=== PATIENT | female | born 1995 | race Caucasian/White ===

== ENCOUNTER 2016-08-12 07:03 | Emergency (ER) | payer OTHER ==
--- NOTE | 2016-08-12 08:37 | RAD ---
INDICATION: Head injury. COMPARISON: There are no prior studies available for comparison. TECHNIQUE: Contiguous axial sections of the brain were obtained from the skull base to the vertex without contrast. FINDINGS: The ventricles, cisterns and sulci are within normal limits. No significant focal abnormality or mass effect is seen. There is no evidence for hemorrhage. No significant focal osseous abnormality is seen. The visualized portion of the paranasal sinuses and mastoid air cells appear clear. IMPRESSION: NO EVIDENCE FOR ACUTE INTRACRANIAL ABNORMALITY.
--- NOTE | 2016-08-12 08:46 | RAD ---
Indication: Neck injury, neck pain. CT of the cervical spine was obtained in the axial plane. Sagittal and coronal reconstructed images were obtained. The skull base demonstrates no fracture. Mastoid air cells are unremarkable. The C1 ring is intact. The vertebral bodies appear normal in height. No compression fracture is noted. Disc space narrowing at C7-T1 is noted. Otherwise the spinal canal appears to be intact. No fracture is noted. IMPRESSION: Degenerative disc disease at C7-T1. No fracture of the cervical spine is present.
[2016-08-12 09:06] VITALS: BP 138/79
--- NOTE | 2016-08-12 14:47 | UC ---
Randell Schmitz Aidan, scribed for Gypsy Pappas MD on 08/12/16 at 0749 . Head Injury HPI - HPI Summary HPI Summary: 21 y/o female presents to the Urgent Care with a complaint of acute, constant, mild pain at the left forehead and at the back right of the head S/P having a 40 -50lb metal shelf fall onto her head at work at 2300 on 08/10. The shelf fell roughly 2-3 feet before hitting her head. Associated symptoms include intermittent episodes of sharp diffuse PETTY that last roughly 2-3 minutes at a time, right shoulder pain, episodes of palpitations and nausea. Chewing aggravates her head pain. Pt denies any LOC, numbness, weakness, problems hearing, visual symptoms, dizziness, abdominal pain, dysuria, abdominal pain, changes to her bite or jaw movement, or SOB . Hx of mild concussions without LOC , one when the patient was 4 years old and another when she was in high school. 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 Onset/Duration: Sudden Onset, Lasting Days, Still Present Severity Currently: Moderate Severity Initially: Mild Pain Intensity: 2 Pain Scale Used: 0-10 Numeric Character: Sharp Aggravating Factor(s): Other - chewing Alleviating Factor(s): Other - unknown Associated Signs And Symptoms: Positive: Nausea, Other - episodes of palpitations, HAs, right shoulder pain - Allergies/Home Medications Allergies/Adverse Reactions: Allergies Allergy/AdvReac Type Severity Reaction Status Date / Time No Known Allergies Allergy Verified 05/28/15 18:09 Home Medications: Home Medications NK [No Home Medications Reported] 08/12/16 [History Confirmed 08/12/16] PMH/Surg Hx/FS Hx/Imm Hx Previously Healthy: Yes - Surgical History Surgical History: None - Family History Known Family History: Negative: Diabetes - Social History Occupation: Employed Full-time Lives: Alone Alcohol Use: Rare Substance Use Type: None Smoking Status (MU): Light Every Day Tobacco Smoker Type: Cigarettes Review of Systems Constitutional: Negative Skin: Negative Eyes: Negative ENT: Negative, Other - see hpi Respiratory: Negative Cardiovascular: Negative Gastrointestinal: Nausea Genitourinary: Negative Motor: Other - see hpi Neurovascular: Other - headache see hpi Musculoskeletal: Arthralgia - shoulder pain, head pain Neurological: Headache Psychological: Negative All Other Systems Reviewed And Are Negative: Yes Physical Exam Triage Information Reviewed: Yes Appearance: Well-Appearing - sitting up during examination, Well-Nourished Vital Signs: Initial Vital Signs Temp 98.6 F 08/12/16 07:09 Pulse 85 08/12/16 07:09 Resp 18 08/12/16 07:09 BP 131/82 08/12/16 07:09 Pulse Ox 100 08/12/16 07:09 Vital Signs Reviewed: Yes Eye Exam: Normal - perrla eomi sw / cp fundi nondilated grossly benign no nystagmus tracks all vis egan double vision at approx 4 inches, no c/o ENT Exam: Other - tender R lat church, and masseter L regions. C/o pain in jaw (L>R) with chewing and full open. ENT: Positive: Normal ENT inspection, Pharynx normal, TMs normal Dental Exam: Normal - no c/o problems since event (does see a dentist) Neck exam: Other - tender mid cervical region, no point tenderness, but + spasm R>L generalized, more in the lower neck. Neck: Positive: Supple, No Lymphadenopathy Respiratory Exam: Normal Respiratory: Positive: Chest non-tender, Lungs clear, Normal breath sounds, No respiratory distress, No accessory muscle use Cardiovascular Exam: Normal Cardiovascular: Positive: RRR, No Murmur, Pulses Normal, Brisk Capillary Refill Abdominal Exam: Normal Abdomen Description: Positive: Nontender, No Organomegaly, Soft Musculoskeletal Exam: Other Musculoskeletal: Positive: Strength Intact, ROM Intact, No Edema, Other: - Diffuse mid-lateral right neck tenderness, no point bony tenderness, cervical spasm Neurological Exam: Other - no focal findings however, c/o intermittent h/a. sharpened rhomberg a little less time and more difficulty than expected (not able to maintain 20 sec but greater than 10 sec) Neurological: Positive: Alert, Muscle Tone Normal, Other: - left foot 15 s right 11s sharpened Romberg, 5 minute 3 word short term recall 3/3, CN 1 - 12 intact, incl + sens alcohol swab. No diplopia. DTR's 2+ equal P / BR / R Moves all ext's. Distal sens LT present x 4 ext's Denies B/B issues. Gait steady. Psychological Exam: Normal Psychological: Positive: Age Appropriate Behavior Skin Exam: Normal Diagnostics - Radiology BRAIN CT Xray Interpretation: No Acute Changes - IMPRESSION: NO EVIDENCE FOR ACUTE INTRACRANIAL ABNORMALITY. CERVICAL SPINE CT Xray Interpretation: Positive (See Comments) - IMPRESSION: Degenerative disc disease at C7-T1. No fracture of the cervical spine is present. Radiology Interpretation Completed By: Radiologist Head Injury Course/Dx - Course Course Of Treatment: No new problems reported while in [facility]. Reviewed ct cspine and ct brain with pt and father (present during exam). Declines anti-emetic. This is her 3rd lifetime head injury, which unfortunately can increase the severity and duration of symptoms more so than one. I suggest that she f/u with a PCP (will benefit from physician referral service) and will benefit from sports medicine or pm/r concussion f/u. Will refer to Sports Medicine ([place]) re concussion f/u. Avoid driving or operating heavy machinery while symptoms persist. Reviewed instructions / need for f/u w pt and dad (present for examination). Questions answered to the best of my ability. - Differential Dx/Diagnosis Differential Diagnosis/HQI/PQRI: Intracranial Bleed Provider Diagnoses: Head injury. Concussion Discharge - Discharge Plan Condition: Stable Disposition: HOME Patient Education Materials: Concussion (ED), Head Injury (ED) Forms: *Work Release Referrals: [facility] [place] [facility]IAN REFERRAL [Outside] Rowdy New [Medical Doctor] - Additional Instructions: Follow up with a primary care physician as soon as you are able. Referral sports medicine - re concussion f/u. In the next couple weeks if possible, Seek medical attention for worse or new problems. Avoid driving or operating heavy machinery until your symptoms have improved. The documentation as recorded by the Randell baig Aidan accurately reflects the service I personally performed and the decisions made by me, Gypsy Pappas MD.
== END 2016-08-12 09:25 | disposition home or self-care (01) ==
LOC: UCEAST 07:03
DX: S06.0X0A Concussion without loss of consciousness, initial encounter (principal); W20.8XXA Other cause of strike by thrown, projected or falling object, initial encounter; Y93.9 Activity, unspecified; Y92.69 Other specified industrial and construction area as the place of occurrence of the external cause; Y99.0 Civilian activity done for income or pay; S09.8XXA Other specified injuries of head, initial encounter; Z72.0 Tobacco use
CPT/HCPCS: 70450; 72125; 84702; 99211; G0463

== ENCOUNTER 2016-08-19 12:37 | Emergency (ER) | payer OTHER ==
[2016-08-19 12:44] VITALS: BP 115/81
--- NOTE | 2016-08-19 14:00 | UC ---
Head Injury HPI - HPI Summary HPI Summary: MERYL FELL ON HEAD, 08/10/16. SEEN 08/12/16 DIAGNOSED WITH CONCUSSION AND CERVICAL STRAIN (WITH DEGENDERATIVE DISC DISEASE). NO LOC. NECK DISCOMFORT AND HEADACHE CONTINUE. HISTORY OF SEVERAL PREVIOUS CONCUSSIONS. - History Of Current Complaint Chief Complaint: UCHeadInjury Stated Complaint: HEAD AND NECK PAIN Time Seen by Provider: 08/19/16 12:40 Hx Obtained From: Patient Hx Last Menstrual Period: 08/17/16 Onset/Duration: Sudden Onset, Lasting Days, Still Present Severity Currently: Mild Severity Initially: Moderate Character: Dull Aggravating Factor(s): Nothing Alleviating Factor(s): Nothing Associated Signs And Symptoms: Positive: Confusion, Neck Pain, Nausea. Negative : LOC (Time In Secs./Mins/Hrs), LOC Duration Unknown Related History: Similar Episode/Dx as - PREVIOUS CONCUSSION HISTORY - Risk Factors SDH Risk Factor: Negative - Allergies/Home Medications Allergies/Adverse Reactions: Allergies Allergy/AdvReac Type Severity Reaction Status Date / Time No Known Allergies Allergy Verified 05/28/15 18:09 PMH/Surg Hx/FS Hx/Imm Hx Previously Healthy: Yes - Surgical History Surgical History: None - Family History Known Family History: Negative: Diabetes - Social History Occupation: Employed Full-time Lives: With Family Alcohol Use: Rare Substance Use Type: None Smoking Status (MU): Light Every Day Tobacco Smoker Type: Cigarettes Review of Systems Constitutional: Negative Skin: Negative Eyes: Negative ENT: Negative Respiratory: Negative Cardiovascular: Negative Gastrointestinal: Negative Genitourinary: Negative Motor: Negative Neurovascular: Decreased Sensation Musculoskeletal: Arthralgia, Myalgia Neurological: Headache Psychological: Negative All Other Systems Reviewed And Are Negative: Yes Physical Exam Triage Information Reviewed: Yes Appearance: Well-Appearing, No Pain Distress, Well-Nourished Vital Signs: Initial Vital Signs Temp 98.7 F 08/19/16 12:40 Pulse 111 08/19/16 12:40 Resp 18 08/19/16 12:40 BP 115/81 08/19/16 12:40 Pulse Ox 100 08/19/16 12:40 Eye Exam: Normal ENT Exam: Normal ENT: Positive: Normal ENT inspection, Hearing grossly normal, Pharynx normal, TMs normal Dental Exam: Normal Neck: Positive: Supple, No Lymphadenopathy, Tenderness @ - PARASPINAL MUSCLES Respiratory Exam: Normal Respiratory: Positive: Chest non-tender, Lungs clear, Normal breath sounds, No respiratory distress, No accessory muscle use Cardiovascular Exam: Normal Cardiovascular: Positive: RRR, No Murmur, Pulses Normal, Brisk Capillary Refill Abdominal Exam: Normal Abdomen Description: Positive: Nontender, No Organomegaly Musculoskeletal Exam: Normal Musculoskeletal: Positive: Strength Intact, ROM Intact Neurological Exam: Normal Neurological: Positive: Alert, Muscle Tone Normal, Other: - CN 2-12 INTACT Psychological Exam: Normal Head Injury Course/Dx - Differential Dx/Diagnosis Differential Diagnosis/HQI/PQRI: Cervical Sprain, Concussion With LOC, Concussion Without LOC Provider Diagnoses: POST-CONCUSSIVE SYNDROME; CERVICAL STRAIN Discharge - Discharge Plan Condition: Stable Disposition: HOME Patient Education Materials: Cervical Strain (ED), Concussion (ED), Post Concussion Syndrome (ED), Degenerative Disc Disease (ED) Forms: *Work Release Referrals: [facility] [place]Outside] Deuce Valverde MD [Primary Care Provider] - Yari Thompson MD [Medical Doctor] - Additional Instructions: PLEASE TAKE NAPROXEN 500mg PO TWO TIMES PER DAY FOR THE NEXT 5 TO 7 DAYS. PRIMARY CARE: There are four major types of clinical preventive care: immunizations, screening , behavioral counseling (sometimes referred to as lifestyle changes), and chemoprevention. All four apply throughout the life span. It is important to establish and to have access to a Primary Care Physician, not only for follow- up regrding acute and chronic problems, but also for preventative care. PHYSICAL THERAPY REFERRAL: You have been prescribed physical therapy. Treatments may include stretching, exercise, application of heat or cold, and other modalities. After an injury, PT can reduce swelling and pain. In recovery, PT is used to restore mobility and strength. Your specific treatment goals are: Reduction of Swelling (EGS, US, ice as needed) __X___ Pain Reduction (EGS, US, ice as needed) ___X__ TENS Pack Fitting and Instruction Wound Hydrotherapy ___X__ Preservation of Mobility __X___ Pentecostalism of Mobility __X___ Strength Pentecostalism __X___ Work or Sports Hardening This instruction sheet also serves as your PHYSICAL THERAPY REFERRAL! Please take it with you to the therapist, so he/she will be aware of your diagnosis and treatment plan. You may see the physical therapist of your choice for these treatments, but may wish to check with your insurance to be sure the provider you select is covered. It's important to see the doctor to whom you have been referred for follow up.
== END 2016-08-19 14:07 | disposition home or self-care (01) ==
LOC: UCEAST 12:37
DX: F07.81 Postconcussional syndrome (principal); G44.309 Post-traumatic headache, unspecified, not intractable; S16.1XXA Strain of muscle, fascia and tendon at neck level, initial encounter; Z72.0 Tobacco use
CPT/HCPCS: 99211; G0463

== ENCOUNTER 2016-10-07 20:02 | Emergency (ER) | payer SELFPAY ==
[2016-10-07 20:11] VITALS: BP 166/105
[2016-10-07] MEDS ORDERED: NS 0.9% 1000 ML* 1,000 ML IV ONE (20:26)
--- NOTE | 2016-10-07 20:43 | UC ---
Dave Schmitz SooYoung, scribed for Sundeep Gillette MD on 10/07/16 at 2026 . Back Pain HPI - HPI Summary HPI Summary: A 21 y/o F presents to ED with c/o severe low back pain onset two days ago, and worsening greatly in past 30 minutes. Intermittent pain also occurring at her L flank. States she's woken up from sleep by the pain. Associated sx: frequency. Denies: dysuria. Took Advil prev to no relief. No Ibuprofen today. States she's never had pain like this before, pt is tearful at bedside. - History of Current Complaint Chief Complaint: UCBackPain Stated Complaint: RIB PAIN Time Seen by Provider: 10/07/16 20:21 Hx Obtained From: Patient Hx Last Menstrual Period: END AUGUST Onset/Duration: Lasting Hours, Lasting Days, Still Present Timing: Constant Severity Currently: Severe Pain Intensity: 10 Pain Scale Used: 0-10 Numeric Back Pain: Is Discrete @ - lower back Aggravating: Movement, Lifting, Bending, Walking, Cough Associated Signs And Symptoms: Positive: Other - pos: frequency. Negative: Bladder Incontinence - Allergies/Home Medications Allergies/Adverse Reactions: Allergies Allergy/AdvReac Type Severity Reaction Status Date / Time No Known Allergies Allergy Verified 10/07/16 20:11 PMH/Surg Hx/FS Hx/Imm Hx Previously Healthy: Yes - Denies. Neg COPD, CHF - Surgical History Surgical History: None - Family History Known Family History: Negative: Diabetes - Social History Occupation: Employed Full-time Lives: With Family Alcohol Use: Occasionally Substance Use Type: None Smoking Status (MU): Former Smoker Type: Cigarettes Review of Systems Constitutional: Fever Skin: Negative Eyes: Negative ENT: Negative Respiratory: Negative Cardiovascular: Negative Gastrointestinal: Other - pos: flank pain Genitourinary: Frequency, Other - neg: dysuria Motor: Negative Neurovascular: Negative Musculoskeletal: Other: - pos: back pain Neurological: Negative Psychological: Negative All Other Systems Reviewed And Are Negative: Yes Physical Exam Triage Information Reviewed: Yes Appearance: Well-Appearing, Pain Distress - moderate to severe Vital Signs: Initial Vital Signs Temp 100.5 F 10/07/16 20:06 Pulse 78 10/07/16 20:06 Resp 18 10/07/16 20:06 BP 166/105 10/07/16 20:06 Pulse Ox 100 10/07/16 20:06 Vital Signs Reviewed: Yes Eyes: Positive: Other: - EOMI/ISA ENT: Positive: Hearing grossly normal Neck: Positive: Supple, Nontender Respiratory: Positive: Chest non-tender, Lungs clear, Normal breath sounds Cardiovascular: Positive: Tachycardia Abdomen Description: Positive: Soft, CVA Tenderness (L) Musculoskeletal: Positive: Strength Intact, ROM Intact Neurological Exam: Normal - sensory/motor intact Neurological: Positive: Alert - A&Ox3 Psychological: Positive: Age Appropriate Behavior Skin Exam: Normal - warm, dry, reflects adequate perfusion Back Pain Course/Dx - Course Course Of Treatment: Patient is Urgent/Emergent. BP elevated due to current condition w/o HTN in PMH. Pt medication reviewed this visit. WITH THE SEVERE FLANK PAIN AND FEVER, I RECOMMENDED PATIENT SEEK EVALUATION IN THE EMERGENCY DEPARTMENT. THE FATHER AND PATIENT WISHED TO GO BY POV. DISCUSSED WITH ED PROVIDER OK STEPHEN. - Differential Dx/Diagnosis Provider Diagnoses: FLANK PAIN. UTI. Elevated blood pressure without diagnosis of hypertension Discharge - Discharge Plan Condition: Stable Disposition: HOME Patient Education Materials: Fever in Adults (ED), Flank Pain (ED) Referrals: Deuce Valverde MD [Primary Care Provider] - (Follow up for additional blood pressure readings in 1 day to 4 weeks.) Additional Instructions: Your blood pressure reading today was 166/105, which is HYPERTENSIVE. Follow-up with your primary care provider within 4 weeks for blood pressure readings and further evaluation. Lab Results - Lab Results Lab Results: 10/07/16 10/07/16 20:30 20:33 POC Urine Color Yellow POC Urine Clarity Clear POC Urine pH 5.5 POC Ur Specif [place] 1.015 POC Urine Protein Trace H POC Ur Glucose (UA) Negative POC Urine Ketones Negative POC Urine Blood Negative POC Urine Nitrite Negative POC Urine Bilirubin Negative POC Urine Urobilinogen 0.2 POC U Leukocyte Esteras Trace H POC Ur Test Negative The documentation as recorded by the Dave baig SooYoung accurately reflects the service I personally performed and the decisions made by me, Sundeep Gillette MD.
== END 2016-10-07 20:42 | disposition home or self-care (01) ==
LOC: UCEAST 20:02
DX: N39.0 Urinary tract infection, site not specified (principal); M54.5 Low back pain; R03.0 Elevated blood-pressure reading, without diagnosis of hypertension; Z32.02 Encounter for pregnancy test, result negative; Z87.891 Personal history of nicotine dependence
CPT/HCPCS: 81003; 84702; 87086; 99211; G0463

== ENCOUNTER 2016-10-07 20:54 | Emergency (ER) | payer SELFPAY ==
[2016-10-07] MEDS ORDERED: Ondansetron INJ* 2 MG/ML VIAL IV ONE (22:09)
[2016-10-07] MEDS ORDERED: NS 0.9% 1000 ML* 1,000 ML IV ONE (22:09)
[2016-10-07] MEDS ORDERED: Ketorolac INJ* 30 MG/ML 1 ML VIAL IV ONE (22:09)
--- NOTE | 2016-10-07 22:30 | ED ---
Mary Schmitz Alfonso, scribed for Homer Childers MD on 10/07/16 at 2204 . Abdominal Pain/Female - HPI Summary HPI Summary: This patient is a 21 year old F presenting to [facility] with a chief complaint of left flank pain since 0700 yesterday morning. The pain is worse since a few hours ago. She has never had this pain before. The CC is described as aching and sharp. The patient rates the pain 10/10 in severity. Symptoms aggravated and alleviated by nothing. Patient reports increased urinary frequency, and nausea. - History of Current Complaint Chief Complaint: EDFlankPain Stated Complaint: LT FLANK PAIN/SENT FROM [facility] Time Seen by Provider: 10/07/16 22:02 Hx Obtained From: Patient Hx Last Menstrual Period: END AUGUST Onset/Duration: Sudden Onset, Lasting Days - since 0700 yesterday morning, Worse Since - a few hours ago. Timing: Constant Severity Initially: Severe Severity Currently: Severe Pain Intensity: 10 Pain Scale Used: 0-10 Numeric Location: Flank - Left Character: Sharp, Other: - Aching Aggravating Factor(s): Nothing Alleviating Factor(s): Nothing Associated Signs and Symptoms: Positive: Urinary Symptoms - Frequency, Nausea Allergies/Adverse Reactions: Allergies Allergy/AdvReac Type Severity Reaction Status Date / Time No Known Allergies Allergy Verified 10/07/16 20:11 PMH/Surg Hx/FS Hx/Imm Hx Sensory History: Denies: Hx Deafness Opthamlomology History: Denies: Hx Legally Blind - Immunization History Date of Tetanus Vaccine: unknown Infectious Disease History: No Infectious Disease History: Denies: Hx Clostridium Difficile, Hx Hepatitis, Hx Human Immunodeficiency Virus (HIV), Hx of Known/Suspected MRSA, Hx Shingles, Hx Tuberculosis, Hx Known/ Suspected VRE, Hx Known/Suspected VRSA, History Other Infectious Disease, Traveled Outside the [place] in Last 30 Days - Family History Known Family History: Negative: Diabetes - Social History Alcohol Use: Occasionally Substance Use Type: Reports: None Smoking Status (MU): Former Smoker Type: Cigarettes Review of Systems Positive: Abdominal Pain - Left flank, Nausea Positive: frequency - increased All Other Systems Reviewed And Are Negative: Yes Physical Exam Triage Information Reviewed: Yes Vital Signs On Initial Exam: Initial Vitals Temp Pulse Resp BP Pulse Ox 97.5 F 99 20 122/81 100 10/07/16 20:57 10/07/16 20:57 10/07/16 20:57 10/07/16 20:57 10/07/16 20:57 Vital Signs Reviewed: Yes Appearance: Positive: No Pain Distress, Thin Skin: Positive: Warm Head/Face: Positive: Normal Head/Face Inspection Eyes: Positive: ISA ENT: Positive: Hearing grossly normal Neck: Positive: Supple, Nontender Respiratory/Lung Sounds: Positive: Breath Sounds Present Cardiovascular: Positive: RRR Abdomen Description: Positive: Nontender, Soft. Negative: CVA Tenderness (R), CVA Tenderness (L) Bowel Sounds: Positive: Present Musculoskeletal: Positive: Strength/ROM Intact Neurological: Positive: Alert, Oriented to Person Place, Time Psychiatric: Positive: Affect/Mood Appropriate - [place] Coma Scale Coma Scale Total: 15 Diagnostics - Vital Signs Vital Signs Temp Pulse Resp BP Pulse Ox 10/07/16 20:57 97.5 F 99 20 122/81 100 - Laboratory Result Diagrams: 10/07/16 23:09 10/07/16 23:09 Lab Statement: Any lab studies that have been ordered have been reviewed, and results considered in the medical decision making process. - CT A/P CT Interpretation Completed By: Radiologist - No nephrolithiasis, ureterolithiasis, or obstructive uropathy. No bladder calculi. Unremarkable pancreas and gallbladder. No obstruction, colitis, or free air. Normal appendix. Negligible physiologic free fluid cul-de-sac. Positioning more likely than dextroscoliosis. Re-Evaluation - Re-Evaluation First Eval Comment: results d/w pt, labs and ct neg, pt reassured, will tx for musculoskeltal pain to f/u with pcp Abdominal Pain Fem Course/Dx - Course Course Of Treatment: This patient is a 21 year old F presenting to [facility] with a chief complaint of left flank pain since 0700 yesterday morning. The pain is worse since a few hours ago. She has never had this pain before. The CC is described as aching and sharp. The patient rates the pain 10/10 in severity. Symptoms aggravated and alleviated by nothing. Patient reports increased urinary frequency, and nausea. CT A/P reveals No nephrolithiasis, ureterolithiasis, or obstructive uropathy. No bladder calculi. Unremarkable pancreas and gallbladder. No obstruction, colitis, or free air. Normal appendix. Negligible physiologic free fluid cul-de-sac. Positioning more likely than dextroscoliosis. Patient will be discharged with prescription for Flexeril and Naproxen and follow up from PCP. The patient is agreeable with this plan. - Diagnoses Provider Diagnoses: Flank pain Discharge - Discharge Plan Condition: Stable Disposition: HOME Prescriptions: Cyclobenzaprine HCl [Flexeril 5 mg (NF)] 5 mg PO TID #15 tab Naproxen TAB* [Naprosyn 250 mg TAB*] 500 mg PO BID #20 tab Patient Education Materials: Flank Pain (ED) Referrals: Deuce Valverde MD [Primary Care Provider] - 3 Days The documentation as recorded by the Mary baig Alfonso accurately reflects the service I personally performed and the decisions made by , Homer Childers MD.
[2016-10-07 22:44] LABS: Urine Bilirubin Negative (Negative); Urine Glucose Negative (Negative); Urine Nitrite Negative (Negative)
[2016-10-07 23:22] LABS: Hematocrit 37 % (35-47); Hemoglobin 12.3 g/dl (12.0-16.0); Mean Corpuscular HGB Conc 33 g/dl (31-36); Mean Corpuscular Hemoglobin 29 pg (27-31); Mean Corpuscular Volume 87 fL (80-97); Mean Platelet Volume 9 um3 (7.4-10.4); Red Cell Distribution Width 14 % (10.5-15); White Blood Count 6.4 10^3/ul (3.5-10.8)
[2016-10-07 23:37] LABS: BUN/Creatinine Ratio 14.5 (8-20); C Reactive Protein 24.31 mg/L (< 5.00); Calcium 9.7 mg/dL (8.6-10.3); EGFR African American 138.1 (>60); EGFR Non-African American 107.4 (>60); Globulin 2.5 g/dL (2-4); Magnesium 2.1 mg/dL (1.9-2.7); Potassium 3.6 mmol/L (3.5-5.0); Total Bilirubin 0.3 mg/dL (0.2-1.0); Total Protein 7.5 g/dL (6.4-8.9)
[2016-10-07 23:42] LABS: Manual Entry Verification ROB0080; UR Preg Internal Control QC Line Present
[2016-10-08 00:11] VITALS: BP 142/89
--- NOTE | 2016-10-08 07:56 | RAD ---
INDICATION: Left flank pain COMPARISON: None TECHNIQUE: Noncontrast axial source images were acquired from the level hemidiaphragms to the symphysis pubis as part of CT imaging for renal stone. Lung bases: The lung bases are clear. Liver: The liver is normal in size. Noncontrast imaging shows no evidence of a hepatic mass or ductal dilatation. Gallbladder: There are no calcified gallstones. There is no evidence of wall thickening or pericholecystic fluid.. Spleen: The spleen is normal in size. The noncontrast CT appearance is normal. Pancreas: Noncontrast imaging shows no pancreatic mass or ductal dilitation. Adrenal glands: No masses are identified. Kidneys/Bladder: There is no evidence of nephrolithiasis or CT evidence of hydronephrosis. Noncontrast imaging shows no evidence of a renal mass. The bladder is unremarkable.. Adenopathy: There is no evidence of intraperitoneal or retroperitoneal adenopathy. Evaluation is limited without oral contrast. Fluid collections: There are no free or localized fluid collections. Vessels: The aorta and iliac vessels are normal in caliber. There are no significant atherosclerotic changes. The IVC appears normal . There are phleboliths in the minor pelvis. Pelvic organs: The uterus and adnexa appear normal GI tract: Evaluation of the bowel is limited without oral contrast. The stomach, small bowel, and lower GI tract appear grossly normal. There are no obstructive findings. The appendix is visualized and appears normal. Soft tissues: No soft tissue abnormalities of the extraperitoneal abdomen or pelvis are identified. Osseous structures: There are no acute osseous findings. IMPRESSION: NO CONVINCING CT EVIDENCE OF UROLITHIASIS. NORMAL APPENDIX.
== END 2016-10-08 00:20 | disposition home or self-care (01) ==
LOC: ED 20:54
DX: R10.84 Generalized abdominal pain (principal); R11.0 Nausea; Z87.891 Personal history of nicotine dependence
CPT/HCPCS: 36415; 74176; 80053; 81003; 81025; 83605; 83690; 83735; 85025; 86140; 96374; 96375; 99283; J1885; J2405

== ENCOUNTER 2017-03-14 12:24 | Emergency (ER) | payer SELFPAY ==
[2017-03-14 14:53] VITALS: BP 141/83
[2017-03-14] MEDS ORDERED: Ibuprofen TAB* 400 MG PO ONE (14:58)
--- NOTE | 2017-03-14 15:05 | UC ---
Back Pain HPI - History of Current Complaint Chief Complaint: UCLowerExtremity Stated Complaint: FELL TAILBONE INJURY Time Seen by Provider: 03/14/17 14:52 Hx Obtained From: Patient Hx Last Menstrual Period: 02/14/17 ?: No Onset/Duration: Sudden Onset - slipped on stair and hit tail bone on edge of stair 5h ago Severity Initially: Severe Severity Currently: Severe Back Pain: Is Discrete @ - tail bone area Character: Sharp, Throbbing Aggravating Factor(s): Movement, Other - sitting Alleviating Factor(s): Nothing Associated Signs And Symptoms: Positive: Negative - Allergies/Home Medications Allergies/Adverse Reactions: Allergies Allergy/AdvReac Type Severity Reaction Status Date / Time No Known Allergies Allergy Verified 10/07/16 20:11 PMH/Surg Hx/FS Hx/Imm Hx Previously Healthy: Yes - Surgical History Surgical History: None - Family History Known Family History: Negative: Diabetes - Social History Occupation: Student Lives: With Family Alcohol Use: Occasionally Substance Use Type: None Smoking Status (MU): Light Every Day Tobacco Smoker Type: Cigarettes Cessation Counseling: Patient Advised to Stop Review of Systems Constitutional: Negative Respiratory: Negative Cardiovascular: Negative Neurological: Negative Psychological: Negative All Other Systems Reviewed And Are Negative: Yes Physical Exam Triage Information Reviewed: Yes Appearance: Well-Nourished, Pain Distress - standing bent at waist for comfort. tearful d/t pain (has taken no meds) Vital Signs: Initial Vital Signs Temp 99.2 F 03/14/17 12:39 Pulse 99 03/14/17 12:39 Resp 18 03/14/17 12:39 BP 145/86 03/14/17 12:39 Pulse Ox 100 03/14/17 12:39 Vital Signs Reviewed: Yes Respiratory Exam: Normal Cardiovascular Exam: Normal Musculoskeletal: Positive: Other: - no palp pain lower back, palp pain coccyx area, faint ecchymosis Neurological Exam: Normal Psychological Exam: Normal Skin Exam: Normal Back Pain Course/Dx - Differential Dx/Diagnosis Differential Diagnosis/HQI/PQRI: Fracture, Other - contusion Provider Diagnoses: contusion coccyx Discharge - Discharge Plan Condition: Stable Disposition: HOME Prescriptions: Acetaminop/Codeine 30 MG TAB* [Tylenol/Codeine 30 MG TAB*] 1 tab PO Q6H PRN #12 tab MDD 4 PRN Reason: Pain Patient Education Materials: Coccyx Injury (ED) Forms: *Work Release Referrals: No Primary Care Phys,NOPCP [Primary Care Provider] - Additional Instructions: rest, apply ice to area of pain use ibuprofen 600-800mg every 6 hours as needed with food may use tylenol #3 as directed for severe pain
--- NOTE | 2017-03-14 15:49 | RAD ---
HISTORY: Left-sided SI pain after fall COMPARISONS: None VIEWS: 3, frontal, outlet, and lateral views of the sacrum and coccyx FINDINGS: BONE DENSITY: Normal. BONES: There is no displaced fracture. The sacral arches are intact. JOINTS: There is no arthropathy. ALIGNMENT: There is no dislocation. SOFT TISSUES: Unremarkable. OTHER FINDINGS: None. IMPRESSION: NO ACUTE OSSEOUS INJURY OF THE SACRUM AND COCCYX. PLAIN FILMS ARE RELATIVELY INSENSITIVE TO NONDISPLACED FRACTURES OF THE SACRUM AND COCCYX. IF THERE IS PERSISTENT CLINICAL CONCERN FOR SACROCOCCYGEAL OSSEOUS PATHOLOGY, BONE SCANNING MAY BE MORE SENSITIVE
== END 2017-03-14 16:31 | disposition home or self-care (01) ==
LOC: UCEAST 12:24
DX: S30.0XXA Contusion of lower back and pelvis, initial encounter (principal); W10.9XXA Fall (on) (from) unspecified stairs and steps, initial encounter; Y93.9 Activity, unspecified; Y92.9 Unspecified place or not applicable; F17.210 Nicotine dependence, cigarettes, uncomplicated
CPT/HCPCS: 72220; 99212; A9270-GY; G0463

== ENCOUNTER → 2017-05-10 16:29 | Emergency (ER) | payer SELFPAY ==
[~2017-05-10 16:29] MED LIST: Metoclopramide TAB* 10 MG PO ONE
--- NOTE | 2017-05-10 19:05 | ED ---
- HPI Summary HPI Summary: Pt here w/ LMP end of January/beginning of February and positive home urine tests. She has not been seen by OBGYN yet as she's trying to get health insurance and a PCP for referral. Other than "morning sickness" the past 3-4 days and mild intermittent lower pelvic discomfort, she has no complaints. She reports she feels well overall - has had some fatigue but rests well and has been eating well up until morning sickness. Denies spotting, bleeding or vaginal d/c and no fever, chills, CP, SOB, back pain or change in urinary habits. This is her first . She is here to get morning sickness controlled and "see if I'm okay". She has stopped drinking caffeine and ETOH and does not smoke or use drugs. She has not started a vitamin as she wasn't sure what to take. - History of Current Complaint Chief Complaint: EDOBProblems Stated Complaint: ABD PAIN, N/V Time Seen by Provider: 05/10/17 17:39 Hx Obtained From: Patient, Family/[employer] - male partner Pain Intensity: 0 - Assessment Hx Now: No - Allergies/Home Medications Allergies/Adverse Reactions: Allergies Allergy/AdvReac Type Severity Reaction Status Date / Time No Known Allergies Allergy Verified 10/07/16 20:11 PMH/Surg Hx/FS Hx/Imm Hx Previously Healthy: Yes Endocrine/Hematology History: Denies: Hx Anticoagulant Therapy, Hx Blood Disorders, Hx Thyroid Disease, Hx Anemia, Hx Unexplained Bleeding, Hx Coagulopothy History: Reports: Other Problems/Disorders - h/o small ovarian cyst - no complications Sensory History: Denies: Hx Legally Blind, Hx Deafness Opthamlomology History: Denies: Hx Legally Blind - Immunization History Date of Tetanus Vaccine: unknown Infectious Disease History: No Infectious Disease History: Denies: Hx Clostridium Difficile, Hx Hepatitis, Hx Human Immunodeficiency Virus (HIV), Hx of Known/Suspected MRSA, Hx Shingles, Hx Tuberculosis, Hx Known/ Suspected VRE, Hx Known/Suspected VRSA, History Other Infectious Disease, Traveled Outside the [place] in Last 30 Days - Family History Known Family History: Positive: Other - mom miscarried 3 times (reasons unknown ) - has 3 viable pregnancies Negative: Diabetes - Social History Occupation: Employed Full-time Lives: With Family Alcohol Use: Occasionally Hx Substance Use: No Substance Use Type: Reports: None Hx Tobacco Use: Yes - not currently Smoking Status (MU): Light Every Day Tobacco Smoker Type: Cigarettes Review of Systems Positive: Fatigue - as in HPI. Negative: Fever, Chills Cardiovascular: Negative Respiratory: Negative Positive: Vomiting, Nausea. Negative: Diarrhea - still moving bowels Genitourinary: Negative Positive: other - still urinating well. Negative: burning, dysuria, discharge, frequency, flank pain, hematuria, incontinence, pain, urgency Musculoskeletal: Negative Skin: Negative Neurological: Negative Psychological: Normal All Other Systems Reviewed And Are Negative: Yes Physical Exam - Physical Exam Triage Information Reviewed: Yes Vital Signs Reviewed: Yes Appearance: Positive: Well-Appearing, No Pain Distress, Thin Skin: Positive: Warm, Skin Color Reflects Adequate Perfusion, Dry Head/Face: Positive: Normal Head/Face Inspection Eyes: Positive: Normal, EOMI, Conjunctiva Clear - anicteric sclera ENT: Positive: Normal ENT inspection, Hearing grossly normal, Pharynx normal - mucosa moist Neck: Positive: Supple Respiratory/Lung Sounds: Positive: Clear to Auscultation, Breath Sounds Present Cardiovascular: Positive: Normal, RRR, S1, S2. Negative: Murmur, Rub Abdomen Description: Positive: Nontender, No Organomegaly, Soft Bowel Sounds: Positive: Present Musculoskeletal: Positive: Normal, Strength/ROM Intact Neurological: Positive: Normal, Sensory/Motor Intact, Alert, Oriented to Person Place, Time, CN Intact II-III Psychiatric: Positive: Normal Diagnostics - Vital Signs Vital Signs Temp Pulse Resp BP Pulse Ox 05/10/17 16:40 98.7 F 85 14 130/73 79 - Laboratory Lab Results: Lab Results 05/10/17 Range/Units 17:30 Beta HCG, Quant 64998.00 mIU/mL Lab Statement: Any lab studies that have been ordered have been reviewed, and results considered in the medical decision making process. Course/Dx - Course Course Of Treatment: Pt's serum hcg confirms at about the same time frame of her LMP (about 11 weeks ). Estimated due date using calculator is Nov 25, 2017. She has resolution of nausea since reglan and drinking w/o difficulty now. Will send to pharmacy for use PRN. Also discussed healthy tips (ie, starting prenantal vitamin which she can get OTC, avoiding meds except acetaminophen, etc). Congratulated on efforts to make changes for healthy . Reviewed danger s/sx of when to return to ED. Otherwise, advised to consult w/ OBGYN - referral given today. Pt and partner agree w/ plan. NOTE: U/S is not required as she has no danger s/sx of pathology and HR may not be attained this early in . - Diagnoses Provider Diagnoses: , Morning sickness - Provider Notifications Discussed Care Of Patient With: Reji Squires Discharge - Discharge Plan Condition: Stable Disposition: HOME Prescriptions: Metoclopramide TAB* [Reglan TAB*] 10 mg PO Q8H PRN #15 tab PRN Reason: Nausea Patient Education Materials: (ED), Hyperemesis Gravidarum (ED) Referrals: No Primary Care Phys,NOPCP [Primary Care Provider] - [facility] [place] [facility] [Outside] Phil Carter MD [Medical Doctor] - Additional Instructions: Based on your LMP and hcg level, you appear to be about 11 weeks along and based on calculations, your estimated due date is November 25, 2017. This may be better estimated once you have had an ultrasound. You may establish with an OBGYN for further workup - call tomorrow to schedule an initial appointment for next week to get your first ultrasound - this should show heart rate if viable . In the meantime, start a vitamin (you may get these at pharmacies, groceries stores or health food stores or on-line - ask pharmacist if you feel you need further guidance). Continue with your healthy lifestyle of no smoking, no drinking alcohol or caffeine and getting plenty of sleep. You may take acetaminophen only for pain, fever - inquire with OBGYN about other medications that are safe during as needed. You have been provided with an anti-nausea medication today, reglan, which is safe in but only take as needed. Stay hydrated. *If you develop abdominal pain, contractions, vaginal spotting/bleeding or abnormal discharge, back pain, fever, chills or intractable vomiting or diarrhea leading to dehydration, return to the ED.
[2017-05-10 19:09] VITALS: BP 117/74
== END | disposition home or self-care (01) ==
LOC: ED 16:29
DX: O21.0 Mild hyperemesis gravidarum (principal); O99.331 Smoking (tobacco) complicating pregnancy, first trimester; F17.210 Nicotine dependence, cigarettes, uncomplicated; Z3A.11 11 weeks gestation of pregnancy
CPT/HCPCS: 36415; 84702; 99282; A9270-GY

== ENCOUNTER 2017-05-30 16:08 | Emergency (ER) | payer SELFPAY ==
[2017-05-30 20:03] VITALS: BP 120/75
--- NOTE | 2017-06-11 11:17 | UC ---
Respiratory Complaint HPI - HPI Summary HPI Summary: Patient complains of sore throat for several days and some nasal congestion. She also c/o dry cough which she found was streaked with blood past several times and this prompted her to visit UC. Denies fever although she does not know if she had low grade, denies malaise, or facial pain. She denies known contact with tuberculosis or others with chronic cough, night sweats, weight loss. - History of Current Complaint Chief Complaint: UCRespiratory Stated Complaint: COUGHING UP BLOOD,ST,3MOS PREG Time Seen by Provider: 05/30/17 18:34 Hx Obtained From: Patient Hx Last Menstrual Period: 02/14/17 ?: Yes Onset/Duration: Sudden Onset, Lasting Days Timing: Intermittent Episodes Severity Initially: Mild Severity Currently: Moderate Pain Intensity: 4 Character: Cough: Nonproductive - with streaks of blood Associated Signs And Symptoms: Positive: Nasal Congestion, Sinus Discomfort - Risk Factors Tuberculosis Risk Factors: Negative - Allergies/Home Medications Allergies/Adverse Reactions: Allergies Allergy/AdvReac Type Severity Reaction Status Date / Time No Known Allergies Allergy Verified 05/30/17 17:15 Home Medications: Home Medications Pnv No.95/Ferrous Fum/Folic AC [ Vitamin & Minera 28-0.8 mg] 1 tab PO [History] PMH/Surg Hx/FS Hx/Imm Hx Previously Healthy: Yes Other History Of: Negative For: Anticoagulant Therapy - Surgical History Surgical History: None - Family History Known Family History: Positive: Other - mom miscarried 3 times (reasons unknown ) - has 3 viable pregnancies Negative: Diabetes - Social History Alcohol Use: None Substance Use Type: None Smoking Status (MU): Former Smoker Type: Cigarettes Review of Systems Constitutional: Negative ENT: Sore Throat, Nasal Discharge Respiratory: Cough All Other Systems Reviewed And Are Negative: Yes Physical Exam Triage Information Reviewed: Yes Appearance: Well-Appearing, No Pain Distress, Well-Nourished Vital Signs: Initial Vital Signs Temp 99.1 F 05/30/17 17:11 Pulse 82 05/30/17 17:11 Resp 18 05/30/17 17:11 BP 120/76 05/30/17 17:11 Pulse Ox 100 05/30/17 17:11 Vital Signs Reviewed: Yes Eyes: Positive: Conjunctiva Clear ENT: Positive: Hearing grossly normal, Pharyngeal erythema, TMs normal, Uvula midline Respiratory: Positive: Chest non-tender, Lungs clear, Normal breath sounds, No respiratory distress Cardiovascular: Positive: RRR, No Murmur, Pulses Normal, Brisk Capillary Refill UC Diagnostic Evaluation - Laboratory O2 Sat by Pulse Oximetry: 100 Respiratory Course/Dx - Course Course Of Treatment: POC rapid strep negative. Continue oral hydration, tylenol as needed, Follow up with PCP if not symptoms are not self limited or if they worsen. F.u with OBGYN with routine screenings, PPD, and dental to rule out gum disease. Patient with complaints of sore throat and Hx of GERD, d/ w patient antireflux measures and use of calcium carbonate (TUMS) when needed. - Differential Dx/Diagnosis Provider Diagnoses: Viral URI. GERD Discharge - Sign-Out/Discharge Documenting (check all that apply): Discharge - Discharge Plan Condition: Stable Disposition: HOME Patient Education Materials: Gastroesophageal Reflux Disease (ED) Referrals: [facility] [Outside] No Primary Care Phys,NOPCP [Primary Care Provider] - - Billing Disposition and Condition Condition: STABLE Disposition: HOME
== END 2017-05-30 19:58 | disposition home or self-care (01) ==
LOC: UCEAST 16:08
DX: J06.9 Acute upper respiratory infection, unspecified (principal); K21.9 Gastro-esophageal reflux disease without esophagitis; Z87.891 Personal history of nicotine dependence
CPT/HCPCS: 87070; 87651; 99211; G0463

== ENCOUNTER 2017-09-06 22:26 | Emergency (ER) | payer OTHER ==
[2017-09-06 22:29] VITALS: BP 155/98
--- NOTE | 2017-09-06 23:02 | ED ---
- HPI Summary HPI Summary: Patient with history of 24 weeks complains of mechanical fall when she tripped over a dog with subsequent left side abdominal pain rated currently 3/ 10. Denies any other pain or injury including head injury. A1. has been evaluated by [facility] with ultrasound confirming IUP. Last visit [facility] 1 month ago. Patient denies N/V, vaginal symptoms, urinary symptoms, bowel movement change. History is none. Abdominal/pelvic surgical history is none. - History of Current Complaint Chief Complaint: EDOBProblems Stated Complaint: 20 WEEKS PREG/ABD PAIN Time Seen by Provider: 09/06/17 22:32 Hx Obtained From: Patient Chief Complaint: Pain Onset/Duration: Started Minutes Ago Timing: Constant Severity: Mild Current Severity: Mild Pain Intensity: 3 Location of Pain: Left Side Character: Cramping Associated Signs and Symptoms: Positive: Negative - Assessment Hx Now: Yes - Allergies/Home Medications Allergies/Adverse Reactions: Allergies Allergy/AdvReac Type Severity Reaction Status Date / Time No Known Allergies Allergy Verified 09/06/17 22:30 PMH/Surg Hx/FS Hx/Imm Hx Endocrine/Hematology History: Denies: Hx Anticoagulant Therapy, Hx Blood Disorders, Hx Thyroid Disease, Hx Anemia, Hx Unexplained Bleeding Respiratory History: Denies: Hx Lung Cancer History: Reports: Other Problems/Disorders - h/o small ovarian cyst - no complications Sensory History: Denies: Hx Legally Blind, Hx Deafness Opthamlomology History: Denies: Hx Legally Blind Neurological History: Denies: Hx CVA - Immunization History Date of Tetanus Vaccine: unknown Infectious Disease History: No Infectious Disease History: Denies: Hx Clostridium Difficile, Hx Hepatitis, Hx Human Immunodeficiency Virus (HIV), Hx of Known/Suspected MRSA, Hx Shingles, Hx Tuberculosis, Hx Known/ Suspected VRE, Hx Known/Suspected VRSA, History Other Infectious Disease, Traveled Outside the [place] in Last 30 Days - Family History Known Family History: Positive: Other - mom miscarried 3 times (reasons unknown ) - has 3 viable pregnancies Negative: Diabetes - Social History Alcohol Use: None Hx Substance Use: No Substance Use Type: Reports: None Hx Tobacco Use: Yes - not currently Smoking Status (MU): Former Smoker Type: Cigarettes Review of Systems Constitutional: Negative Eyes: Negative ENT: Negative Cardiovascular: Negative Respiratory: Negative Positive: Abdominal Pain Genitourinary: Negative Musculoskeletal: Negative Skin: Negative Neurological: Negative Psychological: Normal All Other Systems Reviewed And Are Negative: Yes Physical Exam - Summary Physical Exam Summary: Mild tenderness to palpation left lower quadrant. Abdomen otherwise nontender to palpation. - Physical Exam Triage Information Reviewed: Yes Vital Signs Reviewed: Yes Appearance: Positive: Well-Appearing Skin: Positive: Warm Head/Face: Positive: Normal Head/Face Inspection Eyes: Positive: Normal Neck: Positive: Supple Respiratory/Lung Sounds: Positive: Clear to Auscultation Cardiovascular: Positive: Normal Abdomen Description: Positive: Other: Musculoskeletal: Positive: Normal Neurological: Positive: Normal Psychiatric: Positive: Normal AVPU Assessment: Alert - [place] Coma Scale Eye: 4 - Spontaneous Motor: 6 - Obeys Commands Verbal: 5 - Oriented Coma Scale Total: 15 Diagnostics - Vital Signs Vital Signs Temp Pulse Resp BP Pulse Ox 09/06/17 22:27 98.4 F 102 19 155/98 96 - Laboratory Lab Statement: Any lab studies that have been ordered have been reviewed, and results considered in the medical decision making process. Course/Dx - Course Course Of Treatment: Patient with history of 24 weeks complains of mechanical fall when she tripped over a dog with subsequent left side abdominal pain rated currently 3/10. Denies any other pain or injury including head injury. A1. has been evaluated by [facility] with ultrasound confirming IUP. Last visit [facility] 1 month ago. Patient denies N/V, vaginal symptoms, urinary symptoms, bowel movement change. History is none. Abdominal/ pelvic surgical history is none. PE: Mild tenderness to palpation left lower quadrant. Abdomen otherwise nontender to palpation.No evidence of ecchymosis, swelling, deformity, erythema, extra warmth to abdomen. heart tones 144. Vital signs within normal limits and stable. monitoring by maternity was unable to get complete 10 minutes trip due to activity, however several 3-4 minutes trips indicated heart rate was in normal limits and good activity. Follow up with [facility]AG [facility]. - Diagnoses Provider Diagnoses: Fall, Discharge - Sign-Out/Discharge Documenting (check all that apply): Patient Departure - Discharge Plan Condition: Stable Disposition: HOME Patient Education Materials: (ED) Referrals: No Primary Care Phys,NOPCP [Primary Care Provider] - Additional Instructions: Follow-up with your [facility]AG FIN[facility]ER. Return to the ED for any new or worsening symptoms - Billing Disposition and Condition Condition: STABLE Disposition: Home
== END 2017-09-06 23:55 | disposition home or self-care (01) ==
LOC: ED 22:26
DX: O26.892 Other specified pregnancy related conditions, second trimester (principal); R10.814 Left lower quadrant abdominal tenderness; Z3A.24 24 weeks gestation of pregnancy; Z87.891 Personal history of nicotine dependence
CPT/HCPCS: 99282

== ENCOUNTER 2017-12-07 23:20 | Emergency (ER) | payer OTHER ==
--- NOTE | 2017-12-08 01:57 | ED ---
- HPI Summary HPI Summary: Patient with history of 37 weeks complains of right mid back pain, lower abdominal cramping, increased urinary frequency and urge, intermittent headaches, nausea, elevated blood pressure 2 days, blurred vision for 45 minutes today. Patient was seen by import dispatcher today and was started on 24-hour urine test. Highest SBP so far has been 138. Denies fever, cough, sore throat , CP, SOB, V/D, change in BM, vaginal symptoms. Patient states import dispatcher says she does not have preeclampsia. Patient has follow-up appointment with import dispatcher tomorrow. . Patient does not have PCP. - History of Current Complaint Chief Complaint: EDGeneral Stated Complaint: FLANK PAIN Time Seen by Provider: 12/08/17 00:50 Hx Obtained From: Patient Onset/Duration: Started Days Ago Timing: Intermittent Severity: Moderate Current Severity: Moderate Pain Intensity: 6 Location of Pain: Right Side Character: Cramping Aggravating Factors: Nothing Alleviating Factors: Nothing Associated Signs and Symptoms: Positive: Back Pain, Nausea, Urinary Symptoms - Assessment Hx Now: Yes - Allergies/Home Medications Allergies/Adverse Reactions: Allergies Allergy/AdvReac Type Severity Reaction Status Date / Time No Known Allergies Allergy Verified 09/06/17 22:30 PMH/Surg Hx/FS Hx/Imm Hx Endocrine/Hematology History: Denies: Hx Anticoagulant Therapy, Hx Blood Disorders, Hx Thyroid Disease, Hx Anemia, Hx Unexplained Bleeding Respiratory History: Denies: Hx Lung Cancer History: Reports: Other Problems/Disorders - h/o small ovarian cyst - no complications Sensory History: Denies: Hx Legally Blind, Hx Deafness Opthamlomology History: Denies: Hx Legally Blind Neurological History: Denies: Hx CVA - Immunization History Date of Tetanus Vaccine: unknown Infectious Disease History: No Infectious Disease History: Denies: Hx Clostridium Difficile, Hx Hepatitis, Hx Human Immunodeficiency Virus (HIV), Hx of Known/Suspected MRSA, Hx Shingles, Hx Tuberculosis, Hx Known/ Suspected VRE, Hx Known/Suspected VRSA, History Other Infectious Disease, Traveled Outside the [place] in Last 30 Days - Family History Known Family History: Positive: Other - mom miscarried 3 times (reasons unknown ) - has 3 viable pregnancies Negative: Diabetes - Social History Alcohol Use: None Hx Substance Use: No Substance Use Type: Reports: None Hx Tobacco Use: Yes - not currently Smoking Status (MU): Former Smoker Type: Cigarettes Review of Systems Constitutional: Negative Eyes: Negative ENT: Negative Cardiovascular: Negative Respiratory: Negative Positive: Nausea Positive: frequency, urgency Musculoskeletal: Negative Skin: Negative Positive: Headache Psychological: Normal All Other Systems Reviewed And Are Negative: Yes Physical Exam - Summary Physical Exam Summary: No right upper quadrant pain. No peripheral edema to bilateral hands or bilateral lower extremities. Patient nontoxic appearing. - Physical Exam Triage Information Reviewed: Yes Vital Signs Reviewed: Yes Appearance: Positive: Well-Appearing Skin: Positive: Warm Head/Face: Positive: Normal Head/Face Inspection Eyes: Positive: Normal Neck: Positive: Supple Respiratory/Lung Sounds: Positive: Clear to Auscultation Cardiovascular: Positive: Normal Abdomen Description: Positive: Nontender Musculoskeletal: Positive: Normal Neurological: Positive: Normal Psychiatric: Positive: Normal AVPU Assessment: Alert - [place] Coma Scale Eye: 4 - Spontaneous Motor: 6 - Obeys Commands Verbal: 5 - Oriented Coma Scale Total: 15 Diagnostics - Vital Signs Vital Signs Temp Pulse Resp BP Pulse Ox 12/07/17 23:24 97.8 F 82 20 131/92 99 - Laboratory Lab Statement: Any lab studies that have been ordered have been reviewed, and results considered in the medical decision making process. Course/Dx - Course Course Of Treatment: Patient with history of 37 weeks complains of right mid back pain, lower abdominal cramping, increased urinary frequency and urge, intermittent headaches, nausea, elevated blood pressure 2 days, blurred vision for 45 minutes today. Patient was seen by import dispatcher today and was started on 24-hour urine test. Highest SBP so far has been 138. Denies fever, cough, sore throat, CP, SOB, V/D, change in BM, vaginal symptoms. Patient states import dispatcher says she does not have preeclampsia. Patient has follow-up appointment with import dispatcher tomorrow. . Patient does not have PCP. Physical exam:No right upper quadrant pain. No peripheral edema to bilateral hands or bilateral lower extremities. Patient nontoxic appearing. Vital signs within normal limits. Physical exam unremarkable. Patient advised to follow-up tomorrow with 24-hour urine test and import dispatcher - Diagnoses Provider Diagnoses: Discharge - Sign-Out/Discharge Documenting (check all that apply): Patient Departure - Discharge Plan Condition: Stable Disposition: HOME Patient Education Materials: (ED) Referrals: No Primary Care Phys,NOPCP [Primary Care Provider] - William Contreras MD [Medical Doctor] - Additional Instructions: Follow-up tomorrow with your import dispatcher and Dr. Contreras for further evaluation of blood pressure. Return to the ED for any new or worsening symptoms - Billing Disposition and Condition Condition: STABLE Disposition: Home
[2017-12-08 02:10] VITALS: BP 119/91
== END 2017-12-08 02:08 | disposition home or self-care (01) ==
LOC: ED 23:20
DX: O26.893 Other specified pregnancy related conditions, third trimester (principal); R10.30 Lower abdominal pain, unspecified; M54.6 Pain in thoracic spine; R35.0 Frequency of micturition; R11.0 Nausea; R51 Headache; Z3A.37 37 weeks gestation of pregnancy; Z87.891 Personal history of nicotine dependence
CPT/HCPCS: 99282

== ENCOUNTER 2018-01-01 19:13 | Inpatient (IN) | payer OTHER ==
[2018-01-01] MEDS: Promethazine INJ(RESTRICTED)* 25 MG/ML 1 ML VIAL IM PRN (22:43)
[2018-01-01] MEDS: Nalbuphine* 10 MG/ML 1 ML VIAL IM PRN (22:43)
[2018-01-02] MEDS: Promethazine INJ(RESTRICTED)* 25 MG/ML 1 ML VIAL IM PRN (04:34)
[2018-01-02] MEDS: Nalbuphine* 10 MG/ML 1 ML VIAL IM PRN (04:34)
--- NOTE | 2018-01-02 09:15 | HP ---
General Information - Reason for Visit prodromal labor, augmentation full term - General Information Maternal Age: 22 Grav: 2 Para: 0 SAB: 1 IEA: 0 Estimated Due Date: 12/31/17 Determined By: Early Ultrasound Maternal Blood Type and Rh: A Positive - Results this Serology/RPR Result: Non-Reactive Rubella Result: Immune HBsAg Result: Negative HIV Result: Negative GBS Culture Result: Negative Past Medical History Pertinent Past Medical History: See Records - hx headaches, back pain from work injury Pertinent Past Surgical History: None Pertinent Family History: See Records - HTN, CVD Review of Systems Constitutional: Uncomfortable CV Complaint: No Respiratory: Shortness of Breath: No Gastrointestinal: No Nausea/Vomiting, Normal Bowel Movement Genitourinary: No Dysuria, No Bleeding, No Leaking Fluid Musculoskeletal: Back Pain, Contractions Neurological: No Headache, No Visual Changes Movement: Normal Exam Allergies/Adverse Reactions: Allergies No Known Allergies Allergy (Verified 01/01/18 19:57) T:97.3, P:80, R:16, BP: 129/81, O2:100% - Measurements Height: 5 ft 6 in Weight: 159 lb Weight in lbs: 159.882924 Body Mass Index (BMI): 25.7 Pre- Weight: 113 lb 3.988 oz Weight Gained This : 45.750 lbs and 0.012 ozs - Exam Breast: Breast Exam Deferred CVA: No CVA Tenderness Extremities: No Edema Heart: Normal Rhythm/Heart Sounds HEENT: No Significant Findings Lungs: Clear Bilaterally Rectal: Rectal Exam Deferred Reflexes: DTR 2+ Thyroid: No Thyromegaly - Abdominal Exam Abdomen Exam: Fundal Height Consistent with Dates - Ultrasound/Biophysical Profile Ultrasound Status: Not Done Targeted Exam Findings Estimated Weight: 7.6 Cervical Exam: 3cm Effacement: 90% Station: -1 Presenting Part: Vertex Membrane Status: AROM Amniotic Fluid Evaluation: Clear, Bloody Bleeding/Discharge: Bloody Show EFM Findings - External Monitor Findings Baseline Heart Rate: 120 External Monitor Findings: Accelerations Present, No Pattern of Variable or Late Decelerations, Variability Moderate, Baseline Stable Contractions: Irregular, Mild, 45-90 Seconds Contraction Frequency: 2-10 Assessment/Plan - Assessment 22 y.o. , 40w2d EGA, GBS negative, AROM, prodromal labor - Plan Plan: Admit - Anticipate Vaginal Delivery - Date/Time of Admission Date of Admission: 01/02/18 Time of Admission: 09:15
--- NOTE | 2018-01-02 12:56 | PN ---
Progress Note - Progress Note Date of Service: 01/02/18 SOAP: Subjective: [Pt increasingly uncomfortable and requesting pain medications. Ctx frequent and felt in back sometimes and sometimes in the front. Pt reports pressure but denies the urge to push. ] Objective: [BP: 139/88, repeat BP: 136/91, T:99.1, P:87, O2: 97% NST: [id number], +accels, -decels, mod variability cervix: /-1 nurse's exam] Assessment: [22 y.o. , active labor, 40w2d] Plan: [1) Pt counseled on pain medications options and elects to try nitrous at this time 2) Reevaluate PRN]
[2018-01-02] MEDS ORDERED: OBEPIDURAL* 250 ML EPIDURAL ONE (13:17)
[2018-01-02] MEDS ORDERED: Sodium Citrate/Citric Acid* 15 ML UDC PO PRN (14:05)
[2018-01-02] MEDS ORDERED: Phenylephrine IV* 40 MCG/ML 10 ML SYRINGE IV PUSH PRN ×2 (14:05)
[2018-01-02 14:06] LABS: ABS Basophils 0 10^3/ul (0-0.2); ABS Eosinophils 0 10^3/ul (0-0.6); ABS Lymphocytes 1.1 10^3/ul (1.0-4.8); ABS Monocytes 0.5 10^3/ul (0-0.8); ABS Neutrophils 7.2 10^3/ul (1.5-7.7); ABS Nucleated RBC 0 10^3/ul; Eosinophil % 0.4 % (0-6); Hematocrit 31 % (35-47); Hemoglobin 10.1 g/dl (12.0-16.0); Lymphocyte % 12.6 % (25-47); Mean Corpuscular HGB Conc 33 g/dl (31-36); Mean Corpuscular Hemoglobin 28 pg (27-31); Mean Corpuscular Volume 85 fL (80-97); Mean Platelet Volume 10.3 fL (7.4-10.4); Nucleated Red Blood Cells % 0; Platelet Count 201 10^3/ul (150-450); Red Blood Count 3.59 10^6/ul (4.00-5.40); Red Cell Distribution Width 15 % (10.5-15); White Blood Count 8.8 10^3/ul (3.5-10.8)
[2018-01-02] MEDS ORDERED: Acetaminophen TAB* 325 MG PO PRN (14:54)
[2018-01-02] MEDS ORDERED: Witch Hazel PAD* JAR TOPICAL PRN (14:54)
[2018-01-02] MEDS ORDERED: OXYTOCIN* 10 UNITS/ML 1 ML VIAL IM ONE (14:54)
[2018-01-02] MEDS ORDERED: Glycerin ADULT SUPP PR PRN (14:54)
[2018-01-02] MEDS ORDERED: Dibucaine 1% 28.35 GM TUBE PR PRN (14:54)
--- NOTE | 2018-01-02 14:57 | PROCNOTE ---
[facility] OB: Delivery Note - Delivery A Date of : 01/02/18 Time of : 14:28 Sex: Female Score 1 Minute: 8 Score 5 Minutes: 9 Gestational Age in Weeks and Days at Delivery: 40 Weeks and 2 Days Delivery Method: Spontaneous Vaginal Labor: Induced - augmentation Did Patient attempt ?: N/A, No Previous Amniotic Fluid: Clear Estimated Blood Loss: 300 Anesthesia/Analgesia: IM/IV, CEI for Labor, Nitrous-Labor Delivered By: Henrietta Best - Nursery Level of Nursery: Regular/Bedside - Perineum Perineal Injury: Perineal Laceration, 1st Degree Perineal Injury Comment: bilateral labial lacerations Perineal Repair: By Delivering Practioner - Events Delivery Events of Note: Pitocin Only After Delivery
[2018-01-02] MEDS ORDERED: OBEPIDURAL* 250 ML EPIDURAL SCH (15:00)
[2018-01-02] MEDS ORDERED: Simethicone TAB* 80 MG TAB.CHEW PO SCH (17:30)
[2018-01-02] MEDS: Ibuprofen TAB* 600 MG PO PRN (22:57)
[2018-01-02] MEDS: Docusate CAP* 100 MG PO SCH (22:57)
[2018-01-03 06:22] LABS: ABS Basophils 0 10^3/ul (0-0.2); ABS Eosinophils 0 10^3/ul (0-0.6); ABS Lymphocytes 1.2 10^3/ul (1.0-4.8); ABS Monocytes 0.5 10^3/ul (0-0.8); ABS Neutrophils 5.2 10^3/ul (1.5-7.7); ABS Nucleated RBC 0 10^3/ul; Eosinophil % 0.3 % (0-6); Hematocrit 25 % (35-47); Hemoglobin 8.3 g/dl (12.0-16.0); Lymphocyte % 17.3 % (25-47); Mean Corpuscular HGB Conc 33 g/dl (31-36); Mean Corpuscular Hemoglobin 28 pg (27-31); Mean Corpuscular Volume 85 fL (80-97); Mean Platelet Volume 9.7 fL (7.4-10.4); Nucleated Red Blood Cells % 0.1; Platelet Count 154 10^3/ul (150-450); Red Blood Count 2.98 10^6/ul (4.00-5.40); Red Cell Distribution Width 15 % (10.5-15); White Blood Count 6.9 10^3/ul (3.5-10.8)
[2018-01-03] MEDS: Ferrous Gluconate TAB* 324 MG TAB PO SCH ×2 (10:18→20:54)
[2018-01-03] MEDS: Ibuprofen TAB* 600 MG PO PRN ×2 (10:18→23:08)
[2018-01-03] MEDS: Docusate CAP* 100 MG PO SCH ×3 (10:19→20:54)
[2018-01-04 08:19] VITALS: BP 110/63
[2018-01-04] MEDS: Ferrous Gluconate TAB* 324 MG TAB PO SCH (08:48)
[2018-01-04] MEDS: Docusate CAP* 100 MG PO SCH (08:48)
[2018-01-04] MEDS: Ibuprofen TAB* 600 MG PO PRN (08:52)
== END 2018-01-04 13:10 | disposition home or self-care (01) | DRG 560 ==
LOC: MCHOBOUT 19:13 → MCHOB 01-02 09:23
PROVIDERS: ADMIT Midwife; ATTEND Midwife
PROC: 10E0XZZ Delivery of Products of Conception, External Approach (ICD-10-PCS; principal; 2018-01-02)
PROC: 3E033VJ Introduction of Other Hormone into Peripheral Vein, Percutaneous Approach (ICD-10-PCS; 2018-01-02)
PROC: 10907ZC Drainage of Amniotic Fluid, Therapeutic from Products of Conception, Via Natural or Artificial Opening (ICD-10-PCS; 2018-01-02)
PROC: 0HQ9XZZ Repair Perineum Skin, External Approach (ICD-10-PCS; 2018-01-02)
DX: O48.0 Post-term pregnancy (principal); Z37.0 Single live birth; O70.0 First degree perineal laceration during delivery; O90.81 Anemia of the puerperium; D64.9 Anemia, unspecified; Z3A.40 40 weeks gestation of pregnancy
CPT/HCPCS: 36415; 85025; 86850; 86900; 86901; A9270-GY; J2300; J2550; J2590